=== PATIENT | male | born 1955 | race Caucasian/White ===

== ENCOUNTER → 2020-10-14 09:56 | Outpatient (CLI) | payer MEDICARE, SELFPAY ==
--- NOTE | ~2020-10-14 | US_ITS ---
EXAMINATION: US [facility] DATE: 10/14/2020 10:11 INDICATION: Encounter for screening for cardiovascular disorders. TECHNIQUE: Grayscale, color Doppler, and pulsed Doppler images of the aorta and common iliac arteries were obtained. COMPARISON: None. FINDINGS: The aorta is normal in caliber. The right common iliac artery is normal in caliber. The left common i liac artery is normal in caliber. IMPRESSION: 1. No abdominal aortic aneurysm. Reviewed, dictated and finalized at location A.
== END ==
PROVIDERS: PCP Family Medicine; Visit Provider Family Medicine
DX: Z13.6 Encounter for screening for cardiovascular disorders (principal)
CPT/HCPCS: 76706

== ENCOUNTER 2021-02-09 09:17 | Outpatient (CLI) | payer MEDICARE, SELFPAY ==
--- NOTE | 2021-02-09 09:43 | EST_ITS ---
Patient Info Name: Fabrice López Age: 66 years : 1955 Gender: Male Ht: 71 in Wt: 225 lbs BSA: 2.29 m2 HR: 69 bpm BP: 131 / 71 mmHg Heart Rhythm: Sinus Rhythm Exam Date: 02/09/2021 9:49 AM Exam Location: [facility] Patient Status: Outpatient Admit Date: 02/09/2021 Staff Ordering Physician: Sameer Freeman MD Link Trainer Mechanic: Tiffanie Gottlieb RDCS Attending Provider: Sameer Freeman MD Referring Physician: Lydia WOODWARD; Exercise Technologist: Maria Fernanda Noyola CT Exercise Physician: Magdiel Alaniz DO Exam Type: CA stress echo Study Info Indications I10 - Essential (primary) hypertension Treadmill exercise stress echocardiogram is performed. Summary 1. 1. Negative Vicente exercise stress test for ischemic ST changes by ECG criteria. 2. 2. Reduced functional capacity, achieving 7 METs of workload. 3. 3. Hypertensive response to exercise. 4. 4. Appropriate HR response to exercise. 5. 5. Appropriate HR recovery at 1 minute post exercise. 6. 6. Negative stress echocardiogram for ischemia by wall motion analysis. 7. 7. Patient informed of the above results. Stress Echo Findings Left Ventricle Appropriate increase in LV endocardial thickening with systole. Appropriate augmentation of contractility with systole. No wall motion abnormality. Left Ventricle Normal LV systolic function, no wall motion abnormality. Protocol: Vicente Rest HR: 67 bpm Peak HR: 146 bpm Rest Sys BP: 130 mmHg Peak Sys BP: 219 mmHg Max Pred HR: 153 bpm % Max Pred HR: 95 % Target HR: 130 bpm Max RPP: 31,974 bpm*mmHg Termination Reason: Reached target heart rate or workload Cardiac Symptoms: Shortness of breath Max ST Seg Deviation: 1.10 mm Total Time: 6 min : 1 sec Rest Hess BP: 70 mmHg Total METS: 7.1 Resting ECG Sinus rhythm. Stress ECG No ST changes. Arrhythmias None. Report Signatures Stress ECG Echo
== END 2021-02-09 09:18 | disposition home or self-care (01) ==
PROVIDERS: PCP Family Medicine; Visit Provider Family Medicine
DX: R07.9 Chest pain, unspecified (principal); I10 Essential (primary) hypertension
CPT/HCPCS: 93351

== ENCOUNTER 2022-06-27 08:35 | Outpatient (CLI) | payer MEDICARE, SELFPAY ==
[2022-06-27 20:16] LABS: Alanine Aminotransferase 34 U/L (6-50); Albumin Level 3.9 g/dL (3.5-5.1); Alkaline Phosphatase 66 U/L (38-126); Anion Gap 0 mmol/L (8-16); Aspartate Amino Transferase 32 U/L (17-59); Bilirubin,Total 1.2 mg/dL (0.2-1.3); Blood Urea Nitrogen 17 mg/dL (9-20); Calcium 9.3 mg/dL (8.4-10.2); Carbon Dioxide 34 mmol/L (22-30); Chloride 105 mmol/L (98-107); Cholesterol 148 mg/dL (0-200); Estimated Glomerular Filt Rate 60; Glucose 110 mg/dL (65-110); HDL Direct 28 mg/dL; Potassium 4.3 mmol/L (3.4-5.0); Sodium 139 mmol/L (137-145); Triglycerides 107 mg/dL (<150)
[2022-06-27 20:30] LABS: LDL Cholesterol Direct 94 mg/dL
[2022-06-27 21:38] LABS: Hemoglobin A1C 6.4 % (<5.7)
== END 2022-06-27 08:36 | disposition home or self-care (01) ==
LOC: ANHGOSHLAB 08:41
PROVIDERS: PCP Family Medicine; Visit Provider Family Medicine
DX: E10.319 Type 1 diabetes mellitus with unspecified diabetic retinopathy without macular edema (principal); E78.2 Mixed hyperlipidemia
CPT/HCPCS: 36415; 80053; 80061; 83036

== ENCOUNTER → 2022-07-03 16:08 | Outpatient (CLI) | payer MEDICARE, SELFPAY ==
--- NOTE | ~2022-07-03 | XR_ITS ---
Clinical Indication: Dyspnea PA and lateral views of the chest: Comparison: 08/10/2010 Findings: Focal airspace opacity left lung apex noted. Linear scarring left lung base noted. Cardiome diastinal silhouette is within normal limits. Bones and soft tissues are unremarkable. Impression: Focal airspace opacity left lung apex. This is somewhat more conspicuous as compared to 2011 exam. Th is is probably benign, but given increased conspicuity, consider CT scan to further evaluate. Reviewed, dictated and finalized at location M. Impression: Focal airspace opacity left lung apex. This is somewhat more conspicuous as com pared to 2010 exam. This is probably benign, but given increased conspicuity, c onsider CT scan to further evaluate.
== END ==
PROVIDERS: PCP Family Medicine; Visit Provider Family Medicine
DX: R06.00 Dyspnea, unspecified (principal); R06.89 Other abnormalities of breathing
CPT/HCPCS: 71046

== ENCOUNTER → 2022-07-07 10:15 | Outpatient (CLI) | payer MEDICARE, SELFPAY ==
--- NOTE | ~2022-07-07 | CT_ITS ---
CT Scan of the Chest without Contrast: Clinical Indication: Shortness of breath, abnormal chest x-ray Technique: Contiguous sections were acquired throughout the chest without intravenous contrast. Dose reduction technique was used on this scan by utilizing automated exposure control and iterative recon struction technique. The dose-length product (DLP) was 643.03 mGy-cm. Findings: There is no evidence of any significant mediastinal, hilar or axillary lymphadenopathy. Coronary aracely ry calcifications are present. There is no evidence of pleural or pericardial effusion. The lungs are clear. No pulmonary nodules or infiltrates are noted. Images through the upper abdomen reveal small gallstone. Impression: Clear lungs. Radiographic density was likely related to the anterior left first rib. Cholelithiasis. Reviewed, dictated and finalized at location . Impression: Clear lungs. Radiographic density was likely related to the anterior left first rib. Cholelithiasis.
== END ==
PROVIDERS: PCP Family Medicine; Visit Provider Family Medicine
DX: R06.02 Shortness of breath (principal); R91.8 Other nonspecific abnormal finding of lung field; K80.20 Calculus of gallbladder without cholecystitis without obstruction
CPT/HCPCS: 71250

== ENCOUNTER 2022-07-21 12:27 | Outpatient (CLI) | payer MEDICARE, SELFPAY ==
--- NOTE | 2022-07-24 10:48 | WPDPFTINT ---
PFT Procedure Performed PFT Procedure Performed Plethysmography (Lung Vol) Diffusing Cap (DLCO) Flow Vol Loop Spirometry w/o Bronchodil PFT Interpretation Lung volumes were measured with the body plethysmography method. Lung volumes are unremarkable. Spirometry showed normal expiratory flow rates and a normal FEV1 to FVC ratio 73%. No post bronchodilator study carried out. Lung diffusion capacity is within the normal range at 98% predicted. The flow-volume loop is unremarkable Impression: Spirometry, lung volumes, and lung diffusion capacity all within the normal range.
== END 2022-07-21 12:28 | disposition home or self-care (01) ==
PROVIDERS: PCP Family Medicine; Visit Provider Family Medicine
DX: R06.00 Dyspnea, unspecified (principal); R06.89 Other abnormalities of breathing
CPT/HCPCS: 94375; 94726; 94729

== ENCOUNTER 2022-10-06 14:27 | Outpatient (CLI) | payer MEDICARE, SELFPAY ==
[2022-10-06 18:29] LABS: Hemoglobin A1C 6.8 % (<5.7)
== END 2022-10-06 14:28 | disposition home or self-care (01) ==
LOC: ANHGOSHLAB 14:30
PROVIDERS: PCP Family Medicine; Visit Provider Family Medicine
DX: E10.319 Type 1 diabetes mellitus with unspecified diabetic retinopathy without macular edema (principal)
CPT/HCPCS: 36415; 83036

== ENCOUNTER 2023-01-31 08:49 | Outpatient (CLI) | payer MEDICARE, SELFPAY ==
[2023-01-31 14:36] LABS: Alanine Aminotransferase 30 U/L (6-50); Albumin Level 3.7 g/dL (3.5-5.1); Alkaline Phosphatase 81 U/L (38-126); Anion Gap 8 mmol/L (8-16); Aspartate Amino Transferase 31 U/L (17-59); Blood Urea Nitrogen 16 mg/dL (9-20); Calcium 9.8 mg/dL (8.4-10.2); Carbon Dioxide 26 mmol/L (22-30); Chloride 105 mmol/L (98-107); Cholesterol 148 mg/dL (0-200); Estimated Glomerular Filt Rate > 60; Glucose 114 mg/dL (65-110); HDL Direct 33 mg/dL; Sodium 139 mmol/L (137-145); Triglycerides 113 mg/dL (<150)
[2023-01-31 14:46] LABS: LDL Cholesterol Direct 90 mg/dL
[2023-01-31 15:05] LABS: Creatinine Urine 127.2 mg/dL
[2023-01-31 15:08] LABS: MALB Creatinine Ratio 52.2 mg/g (0-30); Microalbumin Urine Random 66.4 mg/L (0-16.7)
[2023-01-31 20:24] LABS: Hemoglobin A1C 6.7 % (<5.7)
== END 2023-01-31 08:50 | disposition home or self-care (01) ==
LOC: ANHGOSHLAB 08:51
PROVIDERS: PCP Family Medicine; Visit Provider Family Medicine
DX: E11.9 Type 2 diabetes mellitus without complications (principal)
CPT/HCPCS: 36415; 80053; 80061; 82043; 83036

== ENCOUNTER 2023-07-02 09:33 | Outpatient (CLI) | payer MEDICARE, SELFPAY ==
[2023-07-02 20:08] LABS: Hemoglobin A1C 6.8 % (<5.7)
== END 2023-07-02 09:34 | disposition home or self-care (01) ==
PROVIDERS: PCP Family Medicine; Visit Provider Family Medicine
DX: E10.319 Type 1 diabetes mellitus with unspecified diabetic retinopathy without macular edema (principal)
CPT/HCPCS: 36415; 83036

== ENCOUNTER 2023-10-12 10:26 | Outpatient (CLI) | payer MEDICARE, SELFPAY ==
[2023-10-12 14:21] LABS: Creatinine Urine 110.2 mg/dL
[2023-10-12 14:34] LABS: Alanine Aminotransferase 26 U/L (6-50); Albumin Level 3.9 g/dL (3.5-5.1); Alkaline Phosphatase 79 U/L (38-126); Anion Gap 8 mmol/L (4-12); Aspartate Amino Transferase 51 U/L (17-59); Bilirubin,Total 1.8 mg/dL (0.2-1.3); Blood Urea Nitrogen 16 mg/dL (9-20); Calcium 9.9 mg/dL (8.4-10.2); Carbon Dioxide 27 mmol/L (22-30); Chloride 102 mmol/L (98-107); Cholesterol 143 mg/dL (0-200); Estimated Glomerular Filt Rate 60; Glucose 147 mg/dL (65-110); HDL Direct 34 mg/dL; Potassium 4.1 mmol/L (3.4-5.0); Sodium 137 mmol/L (137-145); Triglycerides 119 mg/dL (<150)
[2023-10-12 14:45] LABS: LDL Cholesterol Direct 84 mg/dL
[2023-10-12 15:22] LABS: MALB Creatinine Ratio < 5.4 mg/g (0-30); Microalbumin Urine Random < 6.0 mg/L (0-16.7)
[2023-10-12 19:41] LABS: Hemoglobin A1C 6.9 % (<5.7)
== END 2023-10-12 10:27 | disposition home or self-care (01) ==
LOC: ANHGOSHLAB 10:27
PROVIDERS: PCP Family Medicine; Visit Provider Family Medicine
DX: E10.21 Type 1 diabetes mellitus with diabetic nephropathy (principal)
CPT/HCPCS: 36415; 80053; 80061; 82043; 83036

== ENCOUNTER 2024-02-11 11:26 | Outpatient (CLI) | payer MEDICARE, SELFPAY | END 2024-02-11 11:27 | disposition home or self-care (01) | LOC: ANHGOSHLAB 11:28 | PROVIDERS: PCP Family Medicine; Visit Provider Family Medicine | DX: E10.21 Type 1 diabetes mellitus with diabetic nephropathy (principal) | CPT/HCPCS: 36415; 83036 ==

== ENCOUNTER 2024-05-22 08:29 | Outpatient (CLI) | payer MEDICARE, SELFPAY ==
--- OUTSIDE RECORDS SUMMARY | 2024-05-22 08:35 | XMS_ITS | Clinical Summary ---
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
--- OUTSIDE RECORDS SUMMARY | 2024-05-22 08:35 | XMS_ITS | CONTINUITY OF CARE DOCUMENT ---
Author Name libia reza Address Unknown Organization [facility] Address [address] [place] [address] Phone [phone] Care Team Providers Care Photoengraving Apprentice Name Role Phone libia reza Unavailable Unavailable INSURANCE PROVIDERS Payer name Policy type / Coverage type [place] red green party ID [facility] Other [id number]
--- OUTSIDE RECORDS SUMMARY | 2024-05-22 08:35 | XMS_ITS | Encounter Summary ---
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
--- OUTSIDE RECORDS SUMMARY | 2024-05-22 08:35 | XMS_ITS | Encounter Summary ---
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
--- OUTSIDE RECORDS SUMMARY | 2024-05-22 08:35 | XMS_ITS | Encounter Summary ---
Author Organization 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
--- OUTSIDE RECORDS SUMMARY | 2024-05-22 08:35 | XMS_ITS | Encounter Summary ---
Author Organization [facility] Address 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
--- OUTSIDE RECORDS SUMMARY | 2024-05-22 08:35 | XMS_ITS | Continuity of Care Document ---
Author Organization [facility] Address [address] [place] [address] Phone Care Team Providers Care Setter Out Name Role Phone Vera Urban Unavailable Unavailable Advance Directives Directive Yes / No Effective Date File Name No Information Encounters Encounter Description Practice Location Reason(s) For Visit Diagnoses Date Provider Providers Copied on Encounter [facility], [address], [place], [place], [address], [place] tel:[phone] [facility] No Information Shlomo-0 [phone] Rajni Gamez. [address] , [address], [place], [address], [place]. tel:[phone] Family History Family Member Type Diagnosis Age At Onset No Information Payers Payer name Insurance type Covered democrat ID Authoriza tion(s) No Information Social History [...]
[2024-05-22 14:38] LABS: Alanine Aminotransferase 27 U/L (6-50); Alkaline Phosphatase 75 U/L (38-126); Anion Gap 6 mmol/L (4-12); Aspartate Amino Transferase 38 U/L (17-59); Bilirubin,Total 1.3 mg/dL (0.2-1.3); Blood Urea Nitrogen 15 mg/dL (9-20); Carbon Dioxide 30 mmol/L (22-30); Chloride 104 mmol/L (98-107); Cholesterol 138 mg/dL (0-200); Estimated Glomerular Filt Rate > 60; Glucose 93 mg/dL (65-110); HDL Direct 34 mg/dL; Potassium 4.3 mmol/L (3.4-5.0); Sodium 140 mmol/L (137-145); Triglycerides 91 mg/dL (<150)
[2024-05-22 14:49] LABS: LDL Cholesterol Direct 79 mg/dL
[2024-05-22 15:11] LABS: Prostate Specific Antigen 1.8 ng/mL (< OR = 4.0)
[2024-05-22 16:01] LABS: Hemoglobin A1C 7.1 % (<5.7)
== END 2024-05-22 08:30 | disposition home or self-care (01) ==
LOC: ANHGOSHLAB 08:30
PROVIDERS: PCP Family Medicine; Visit Provider Family Medicine
DX: E78.2 Mixed hyperlipidemia (principal); E10.319 Type 1 diabetes mellitus with unspecified diabetic retinopathy without macular edema; Z12.5 Encounter for screening for malignant neoplasm of prostate
CPT/HCPCS: 36415; 80053; 80061; 83036; 84153; G0103

== ENCOUNTER 2024-09-01 10:37 | Outpatient (CLI) | payer MEDICARE, SELFPAY ==
[2024-09-01 12:44] LABS: Alanine Aminotransferase 27 U/L (6-50); Alkaline Phosphatase 66 U/L (38-126); Anion Gap 6 mmol/L (4-12); Aspartate Amino Transferase 39 U/L (17-59); Bilirubin,Total 1.7 mg/dL (0.2-1.3); Blood Urea Nitrogen 14 mg/dL (9-20); Calcium 10.2 mg/dL (8.4-10.2); Carbon Dioxide 28 mmol/L (22-30); Chloride 105 mmol/L (98-107); Estimated Glomerular Filt Rate 59; Glucose 108 mg/dL (65-110); Potassium 4.1 mmol/L (3.4-5.0); Sodium 139 mmol/L (137-145); Total Protein 6.5 g/dL (6.3-8.2)
[2024-09-01 15:35] LABS: Hemoglobin A1C. 6.9 % (<5.7)
== END 2024-09-01 10:38 | disposition home or self-care (01) ==
LOC: ANHGOSHLAB 10:37
PROVIDERS: PCP Family Medicine; Visit Provider Family Medicine
DX: E10.319 Type 1 diabetes mellitus with unspecified diabetic retinopathy without macular edema (principal)
CPT/HCPCS: 36415; 80053; 83036

== ENCOUNTER 2024-09-16 00:32 | Day surgery (SDC) | payer MEDICARE, SELFPAY ==
[2024-08-29 10:07] VITALS: BMI 29.7
--- OUTSIDE RECORDS SUMMARY | 2024-09-16 00:40 | XMS_ITS | Encounter Summary ---
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
--- OUTSIDE RECORDS SUMMARY | 2024-09-16 00:40 | XMS_ITS | Encounter Summary ---
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
--- OUTSIDE RECORDS SUMMARY | 2024-09-16 00:40 | XMS_ITS | Encounter Summary ---
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
--- OUTSIDE RECORDS SUMMARY | 2024-09-16 00:40 | XMS_ITS | Continuity of Care Document ---
Author Organization [facility] Address [address] [place] [address] Phone Care Team Providers Care Service Order Expediter Name Role Phone Vera Urban Unavailable Unavailable Advance Directives Directive Yes / No Effective Date File Name No Information Encounters Encounter Description Practice Location Reason(s) For Visit Diagnoses Date Provider Providers Copied on Encounter [facility], [address], [place], [place], [address], [place] tel:[phone] [facility] No Information Shlomo-0 [phone] Rajni Gamez. [address] , [address], [place], [address], [place]. tel:[phone] Family History Family Member Type Diagnosis Age At Onset No Information Payers Payer name Insurance type Covered libertarian ID Authoriza tion(s) No Information Social History [...]
--- OUTSIDE RECORDS SUMMARY | 2024-09-16 00:40 | XMS_ITS | Clinical Summary ---
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
--- OUTSIDE RECORDS SUMMARY | 2024-09-16 00:40 | XMS_ITS | Encounter Summary ---
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
[2024-09-16 10:58] VITALS: BP 127/92; PULSE 80; RESP 18; TEMP 36.5; O2SAT 97; BMI 29.7
[2024-09-16] MEDS: LACTATED RINGERS 1,000 ML 150 ML IV CONT (11:25)
--- NOTE | 2024-09-16 11:41 | P.PNAN_ITS ---
Anes - Initial Pre Proc Eval Procedure: Operation Date: 09/16/24 12:30 Proposed Procedures p Screening Colonoscopy - Asher Perez MD Date/Time: 09/16/24 11:41 Surgeon: Asher Perez MD Pre Op Diagnosis: neoplasm screening Patient Data Age: 69 Gender: M Height: 1.83 m Weight: 99.6 kg Last Vital Signs Temp 97.7 F 09/16/24 10:58 Pulse 80 09/16/24 10:58 Resp 18 09/16/24 10:58 BP 127/92 H 09/16/24 10:58 Pulse Ox 97 09/16/24 10:58 O2 Del Method Room Air 09/16/24 10:58 Allergies Allergy/AdvReac Type Severity Reaction Status Date / Time No Known Allergies Allergy Verified 09/16/24 11:11 Home Medications ?Medication ?Instructions ?Recorded ?Confirmed ?Type aspirin 81 mg tablet,delayed 81 mg PO DAILY 04/23/19 09/16/24 History release blood sugar diagnostic (Contour #100 ea 04/23/19 09/16/24 Rx Next Test Strips) fluticasone propionate 50 1 - 2 spray intranasal DAILY #47.4 04/23/19 09/16/24 Rx mcg/actuation nasal mL spray,suspension flash glucose sensor (FreeStyle #13 ea 12/08/22 09/16/24 Rx Karla 14 Day Sensor kit) insulin lispro 100 unit/mL 1 sliding scale dose subcut 07/09/23 09/16/24 Rx subcutaneous solution (Humalog USEASDIRECTD #300 mL U-100 Insulin) tamsulosin 0.4 mg capsule (Flomax) 0.4 mg PO DAILY #90 caps 12/13/23 09/16/24 Rx atorvastatin 40 mg tablet See Rx Instructions .Route 06/23/24 09/16/24 Rx .COMPLEX #90 tabs lisinopril 40 mg tablet 40 mg PO DAILY #90 tabs 07/14/24 09/16/24 Rx Patient hx anesthesia problems: none Family hx anesthesia problems: none Results Review: All pre-operative results and documents have been reviewed as part of the pre- operative evaluation. 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 Mixed hyperlipidemia Diabetic polyneuropathy Essential hypertension Surgical History Surgical History History of carpal tunnel release Family History Family History Father Diabetes mellitus Family history of cardiovascular disease Hypertension Family history of elevated blood lipids Carcinoma of colon Family history of coronary artery disease Sibling Diabetes mellitus Family history of cardiovascular disease Mother Cerebrovascular accident Grandparent Hypertension Family history of cardiovascular disease Social History Social History Smoking status: Former smoker Smoking end date: 03/05/71 Alcohol intake: never Substance use type: does not use Lack of Transportation: No Lack of Food: Never True Current Housing: I Have Housing Concerned About Future Housing: No Difficulty Paying Gas/Electric Bills: No Difficulty Paying for Meds: No Currently Unemployed: No Education: Decline to Answer Difficulty w/ Childcare or Family Care: No Living arrangements: with family Spiritual care concerns: No Anes - Eval Final PreProcedure Day of Procedure 09/16/24 11:41 Patient weight: overweight Lungs: normal air movement Airway: Mallampati scale class II Neurological: alert and oriented Last oral intake: >/= 8 hours ASA classification: III Emergent: no Anesthetic plan: proceed Anesthesia type and monitoring: general GIVS and standard monitoring Results Review: All pre-operative results and documents have been reviewed as part of the pre-operative evaluation. HTN, hyperlipidemia, DM 1 on insulin pump, fsbs 156, EMMA on CPAP. Informed Consent: The patient's anesthetic plan and its attendant risks and benefits were discussed with the patient/family/POA. Questions were solicited and answers provided to the satisfaction of the patient/family/POA.
--- NOTE | 2024-09-16 11:42 | SUR.PREOP ---
Pt's blood sugar is 208 per his Freestyle Karla. Pt refused finger stick.
--- NOTE | 2024-09-16 12:39 | P.HP_ITS ---
H&P: HPI History of Present Illness Date/Time: 09/16/24 12:39 Chief Complaint: Family history of colon polyps Narrative: This patient has family history of colorectal polyps. Review of Systems Review of Systems: All systems reviewed & are unremarkable except as noted in HPI and below PMFSH Past Medical History Medical History Colon cancer screening care home (current) use of insulin Actinic keratoses Seborrheic keratoses Obesity (BMI 30.0-34.9) Insulin dependent diabetes mellitus Monteggia's fracture (~1982) Wears glasses Carpal tunnel syndrome Trigger finger (~2008) Effects of high altitude (~2008) EMMA (obstructive sleep apnea) Vitamin D deficiency Testicular hypofunction Diabetic retinopathy associated with type 1 diabetes mellitus Proteinuria due to type 1 diabetes mellitus Mixed hyperlipidemia Diabetic polyneuropathy Essential hypertension Surgical History Surgical History History of carpal tunnel release Family History Family History Father Diabetes mellitus Family history of cardiovascular disease Hypertension Family history of elevated blood lipids Carcinoma of colon Family history of coronary artery disease Sibling Diabetes mellitus Family history of cardiovascular disease Mother Cerebrovascular accident Grandparent Hypertension Family history of cardiovascular disease Social History Social History Smoking status: Former smoker Smoking end date: 03/05/71 Alcohol intake: never Substance use type: does not use Lack of Transportation: No Lack of Food: Never True Current Housing: I Have Housing Concerned About Future Housing: No Difficulty Paying Gas/Electric Bills: No Difficulty Paying for Meds: No Currently Unemployed: No Education: Decline to Answer Difficulty w/ Childcare or Family Care: No Living arrangements: with family Spiritual care concerns: No Meds Home Medications and Allergies Home Medications ?Medication ?Instructions ?Recorded ?Confirmed ?Type aspirin 81 mg tablet,delayed 81 mg PO DAILY 04/23/19 09/16/24 History release blood sugar diagnostic (Contour #100 ea 04/23/19 09/16/24 Rx Next Test Strips) fluticasone propionate 50 1 - 2 spray intranasal DAILY #47.4 04/23/19 09/16/24 Rx mcg/actuation nasal mL spray,suspension flash glucose sensor (FreeStyle #13 ea 12/08/22 09/16/24 Rx Karla 14 Day Sensor kit) insulin lispro 100 unit/mL 1 sliding scale dose subcut 07/09/23 09/16/24 Rx subcutaneous solution (Humalog USEASDIRECTD #300 mL U-100 Insulin) tamsulosin 0.4 mg capsule (Flomax) 0.4 mg PO DAILY #90 caps 12/13/23 09/16/24 Rx atorvastatin 40 mg tablet See Rx Instructions .Route 06/23/24 09/16/24 Rx .COMPLEX #90 tabs lisinopril 40 mg tablet 40 mg PO DAILY #90 tabs 07/14/24 09/16/24 Rx Allergies Allergy/AdvReac Type Severity Reaction Status Date / Time No Known Allergies Allergy Verified 09/16/24 11:11 Vital Signs Vital Signs - 24 hr 09/16/24 10:58 Temperature 97.7 F Pulse Rate 80 Respiratory Rate 18 Blood Pressure 127/92 H Pulse Oximetry 97 Oxygen Delivery Room Air Exam Const: General: cooperative and healthy appearing Resp: Effort & Inspection: normal respiratory effort and able to speak in complete sentences Auscultation: clear to auscultation bilaterally Cardio: Rate: regular rate Rhythm: regular rhythm GI: Inspection: normal to inspection GI Palp: No No hepatosplenomegaly present Auscultation: normal bowel sounds Rectal Exam: deferred Skin: General skin exam: normal color Psych: Appearance: grossly normal Mental Status: mental status grossly normal Assessment and Plan Assessment and plan (1) Colon cancer screening: Code(s): Z12.11 - Encounter for screening for malignant neoplasm of colon Status: Acute Assessment and Plan: The patient is deemed a good candidate for the procedure. Consent signed. Will proceed.
--- NOTE | 2024-09-16 13:10 | S_PTH ---
PATIENT: Fabrice López II LOC: [facility] U#:[id number] AGE/SX: 69/M ROOM: RE09/16/[address]: Asher Perez MD : [id number] BED: DIS: 09/16/2024 SPEC #: [id number] RECD: 09/16/24 14:21 STATUS: CHRIS REQ #: [id number] STACEY: 09/16/24 13:[address]: Asher Perez DEPT: [facility] Surgical RECD BY: Mayuri Banuelos ENTERED: 09/16/24 14:23 SP TYPE: Surgical OTHR DR: Bambi Núñez, YANET Tissues: A - Colon Polypectomy B - Colon Polypectomy C - Colon Polypectomy D - Colon Polypectomy Procedures: Hematoxylin and Eosin Stain Gross and Microscopic Level 4
[2024-09-16 13:14] VITALS: BP 80/49; PULSE 64; RESP 21; O2SAT 94
--- NOTE | 2024-09-16 13:17 | SUR.PHASEII ---
blood glucose 102 per patients monitor
[2024-09-16 13:24] VITALS: BP 84/48; PULSE 60; RESP 16; O2SAT 97
[2024-09-16 13:34] VITALS: BP 100/67; PULSE 56; RESP 18; O2SAT 97
== END 2024-09-16 13:47 | disposition home or self-care (01) ==
PROVIDERS: PCP Nurse Practitioner Family; Referring Provider Family Medicine; Visit Provider Internal Medicine Gastroenterology
PROC: 0DJD8ZZ Inspection of Lower Intestinal Tract, Via Natural or Artificial Opening Endoscopic (ICD-10-PCS; CPT 45378; principal; 2024-09-16 12:30)
DX: Z12.11 Encounter for screening for malignant neoplasm of colon (principal); D12.5 Benign neoplasm of sigmoid colon; D12.4 Benign neoplasm of descending colon; K63.5 Polyp of colon; K64.8 Other hemorrhoids; I10 Essential (primary) hypertension; G47.33 Obstructive sleep apnea (adult) (pediatric); E55.9 Vitamin D deficiency, unspecified; E29.1 Testicular hypofunction; E11.42 Type 2 diabetes mellitus with diabetic polyneuropathy; L57.0 Actinic keratosis; L82.1 Other seborrheic keratosis; Z79.4 Long term (current) use of insulin; Z79.82 Long term (current) use of aspirin; Z99.89 Dependence on other enabling machines and devices; Z98.890 Other specified postprocedural states; Z96.41 Presence of insulin pump (external) (internal); Z87.891 Personal history of nicotine dependence; Z83.719 Family history of colon polyps, unspecified; Z80.0 Family history of malignant neoplasm of digestive organs; Z82.49 Family history of ischemic heart disease and other diseases of the circulatory system
CPT/HCPCS: 45385; 88305; J2003; J2704; J7120

== ENCOUNTER 2024-12-08 09:52 | Outpatient (CLI) | payer MEDICARE, SELFPAY ==
--- OUTSIDE RECORDS SUMMARY | 2005-08-08 10:45 | XMS_ITS | Continuity of Care Document ---
Author Organization [facility] Address [address] [place] [address] Phone Care Team Providers Care Block Piler Name Role Phone Vera Urban Unavailable Unavailable Advance Directives Directive Yes / No Effective Date File Name No Information Encounters Encounter Description Practice Location Reason(s) For Visit Diagnoses Date Provider Providers Copied on Encounter [facility], [address], [place], [place], [id number], [place] tel:[phone] [facility] No Information Shlomo-0 [phone] Rajni Gamez. [address] , [address], [place], [address], [place]. tel:[phone] Family History Family Member Type Diagnosis Age At Onset No Information Payers Payer name Insurance type Covered alliance party ID Authoriza tion(s) No Information Social History Type Description Quantity Date Captured Comments Sex Male Smoking Status No Information Chief Complaint And Reason For Visit No Information Reason For Referral Reason For Referral No Information History Of Present Illness Encounter Date Complaint History Of Prese nt Illness No Information Functional Status Date Functional Assessmen t No Information Instructions Date Instruction Additional Infor mation No Information Assessments Type Assessment Date No Information Patient Care Teams Name Effective Dates (start - stop) Status Members No Information
--- OUTSIDE RECORDS SUMMARY | 2024-12-08 10:57 | XMS_ITS | Clinical Summary ---
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
--- OUTSIDE RECORDS SUMMARY | 2024-12-08 10:57 | XMS_ITS | Encounter Summary ---
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
--- OUTSIDE RECORDS SUMMARY | 2024-12-08 10:57 | XMS_ITS | Encounter Summary ---
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
--- OUTSIDE RECORDS SUMMARY | 2024-12-08 10:57 | XMS_ITS | Encounter Summary ---
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
--- OUTSIDE RECORDS SUMMARY | 2024-12-08 10:57 | XMS_ITS | Encounter Summary ---
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
[2024-12-08 13:00] LABS: Anion Gap 4 mmol/L (4-12); Blood Urea Nitrogen 14 mg/dL (9-20); Calcium 9.8 mg/dL (8.4-10.2); Carbon Dioxide 27 mmol/L (22-30); Chloride 106 mmol/L (98-107); Estimated Glomerular Filt Rate > 60; Glucose 210 mg/dL (65-110); Potassium 4.3 mmol/L (3.4-5.0); Sodium 137 mmol/L (137-145)
[2024-12-08 13:23] LABS: Hemoglobin A1C 7.0 % (<5.7)
== END 2024-12-08 09:53 | disposition home or self-care (01) ==
LOC: ANHGOSHLAB 09:54
PROVIDERS: PCP Family Medicine; Visit Provider Nurse Practitioner Family
DX: E10.319 Type 1 diabetes mellitus with unspecified diabetic retinopathy without macular edema (principal); I10 Essential (primary) hypertension
CPT/HCPCS: 36415; 80048; 83036

== ENCOUNTER 2024-12-10 10:38 | Outpatient (CLI) | payer MEDICARE, SELFPAY ==
[2024-12-10 19:59] LABS: MALB Creatinine Ratio 7.0 mg/g (0-30)
== END 2024-12-10 10:39 | disposition home or self-care (01) ==
LOC: ANHGOSHLAB 10:39
PROVIDERS: PCP Family Medicine; Visit Provider Nurse Practitioner Family
DX: E10.319 Type 1 diabetes mellitus with unspecified diabetic retinopathy without macular edema (principal); I10 Essential (primary) hypertension
CPT/HCPCS: 82043

== ENCOUNTER 2025-02-27 13:14 | Emergency (ER) | payer MEDICARE, SELFPAY ==
[2025-02-27 13:27] VITALS: BP 141/64; PULSE 76; RESP 16; TEMP 36.3; O2SAT 99
--- NOTE | 2025-02-27 14:19 | ED_ITS ---
HPI - URI/Sore Throat General Chief Complaint: Upper Respiratory Infection Stated Complaint: ?sinus Time Seen by Provider: 02/27/25 14:19 Source: patient, RN notes reviewed and old records reviewed Mode of arrival: ambulatory Limitations: no limitations History of Present Illness HPI Narrative: 70-year-old male presents to the [facility] with sinus congestion. States that it when he blows his nose he has some ear pain. Symptoms started Sunday or Sunday, 3-4 days ago. States that he does take Sudafed and make symptoms better. Related Data Home Medications ?Medication ?Instructions ?Recorded ?Confirmed ?Last Taken ?Type aspirin 81 mg tablet,delayed 81 mg PO DAILY 04/23/19 1 04/12/24 09/15/24 History release Allergies Allergy/AdvReac Type Severity Reaction Status Date / Time No Known Allergies Allergy Verified 12/10/24 09:26 Review of Systems Review of Systems: All systems reviewed & are unremarkable except as noted in HPI and below Constitutional: Constitutional: Reports no additional constitutional complaints ENT: Reports as per HPI and Reports nasal congestion Cardiovascular: Cardiovascular: Reports no additional cardiovascular complaints, Denies chest pain and Denies dyspnea Respiratory: Respiratory: Reports no additional respiratory complaints, Denies chest congestion, Denies cough and Denies dyspnea Musculoskeletal: Musculoskeletal: Reports no additional musculoskeletal complaints Integumentary/Breasts: Skin/Breast: Reports system reviewed and no additional complaints, except as docu PMFSH Past Medical History Medical History 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 Actinic keratoses Seborrheic keratoses Obesity (BMI 30.0-34.9) Insulin dependent diabetes mellitus Monteggia's fracture (~1982) Wears glasses Carpal tunnel syndrome Trigger finger (~2008) Effects of high altitude (~2008) EMMA (obstructive sleep apnea) Vitamin D deficiency Testicular hypofunction Diabetic retinopathy associated with type 1 diabetes mellitus Proteinuria due to type 1 diabetes mellitus Mixed hyperlipidemia Diabetic polyneuropathy Essential hypertension Surgical History Surgical History History of carpal tunnel release Family History Family History Father Diabetes mellitus Family history of cardiovascular disease Hypertension Family history of elevated blood lipids Carcinoma of colon Family history of coronary artery disease Sibling Diabetes mellitus Family history of cardiovascular disease Mother Cerebrovascular accident Grandparent Hypertension Family history of cardiovascular disease Social History Social History Smoking status: Former smoker Smoking end date: 03/05/71 Alcohol intake: never Substance use type: does not use Lack of Transportation: No Lack of Food: Never True Current Housing: I Have Housing Concerned About Future Housing: No Difficulty Paying Gas/Electric Bills: No Difficulty Paying for Meds: No Currently Unemployed: No Education: Decline to Answer Difficulty w/ Childcare or Family Care: No Living arrangements: with family Spiritual care concerns: No Comments At the time of my signature, I reviewed and agree with the nursing past medical, surgical, social, and family history. There is no relevant family history pertinent to the patient complaint. Exam Const: General: cooperative, healthy appearing, comfortable, no acute distress, well developed, alert and well nourished Nutritional Appearance: well nourished Orientation/consciousness: patient oriented x3 Limitations: no limitations HENMT: Head: normal to inspection Ears: hearing grossly normal bilaterally, external ears normal, TM's normal bilaterally, EAC's normal, mastoids normal and no periauricular adenopathy Mouth: Yes Normal oral and palatal mucosa present, Yes lip normal, Yes tongue normal and Yes moist mucous membranes Throat: posterior oropharynx normal, uvula midline and no uvular edema Eyes: General: appearance normal, both eyes and all related structures Alignment and Position: alignment normal Neck: Neck: normal visual inspection, full ROM, no lymphadenopathy and no meningeal signs Chest: Chest palpation & inspection: normal inspection of the chest Resp: Effort & Inspection: normal respiratory effort and able to speak in complete sentences Auscultation: clear to auscultation bilaterally, no crackles, no rales, no rhonchi and no wheezes Cardio: Rate: regular rate Skin: General skin exam: normal color and no rashes or lesions noted Neuro: General: patient oriented x3, gait normal, moves all extremities and no meningeal signs Cognition (Neuro): normal cognition Speech: normal speech Gait exam (Neuro): Normal gait present Extrem: General: normal to inspection, full ROM, capillary refill normal and normal gait Psych: Appearance: grossly normal and well kempt Mental Status: mental status grossly normal Speech and movement: Normal speech and movement present and Clear speech present Affect: normal affect Attitude: cooperative Course Course Level of Care: Express Care Visit Vital Signs Vital signs: Vital Signs Temperature 97.4 F L 02/27/25 13:27 Pulse Rate 76 02/27/25 13:27 Respiratory Rate 16 02/27/25 13:27 Blood Pressure 141/64 H 02/27/25 13:27 Pulse Oximetry 99 02/27/25 13:27 Temperature 97.4 F L 02/27/25 13:27 Pulse Rate 76 02/27/25 13:27 Respiratory Rate 16 02/27/25 13:27 Blood Pressure 141/64 H 02/27/25 13:27 Pulse Oximetry 99 02/27/25 13:27 reviewed MDM MDM Narrative Medical decision making narrative: Patient sitting in exam room. Patient is nontoxic, vitals stable. Patient presents with 3-4 day history of sinus congestion. Offered flu and COVID testing which he politely declined. Discussed [id number] products, due to high blood pressure discussed not taking Sudafed, discussed alternatives. Encourage patient to use his Flonase Patient appropriate outpatient treatment with close follow-up Discharge instructions reviewed with patient, as well as provided in writing per nursing staff. The instructions also include specific and strict return/GO TO THE ER as well as f/u information. All questions have been answered, and the patient deny any further questions with discharge and discharge plan. Some parts of this dictation were generated by voice recognition software and may contain typographical and/or grammatical inaccuracies. Differential Diagnosis Differential Diagnosis: Differential diagnostic considerations for upper respiratory infection include upper respiratory infection, croup, otitis media, sinusitis, viral infection, bronchitis, influenza, pharyngitis, strep, uvulitis.? Discharge Plan Discharge Clinical Impression: Upper respiratory infection, Sinus congestion Patient Disposition: Home Condition: Stable Instructions: Antibiotic Form, Upper Respiratory Infection (DC) Additional Instructions: Your symptoms are likely due to a viral illness, which is not treated with antibiotics. Typically viral infections last 7-10 days, can linger for couple of weeks. It is very important to treat your symptoms. Drink plenty of water, Gatorade, Pedialyte, ice pops or Jell-O. -Alternate Tylenol and Motrin per package directions for fever or pain. You can alternate every 4 hours -Antihistamine medication such as Zyrtec/Claritin during the day can help improve symptoms. -doing daily nasal irrigations can help relieve pressure your sinuses. Things like a Neti pot -Use Flonase twice a day for 5 days then daily to help reduce the inflammation and dry up your sinuses. -You can also use Mucinex. Be sure to drink plenty of water with this medication at least 8 ounces with every dose and it is important to drink 8 to 10 glasses of water per day. Water is a natural decongestant -Eat and drink things that are easy to swallow, like tea or soup, or popsicles. -Oral rinses such as: Salt water gargles and/or may use topical anesthetic (eg. Chloraseptic spray) or lozenges to relieve dryness or throat pain). -Frequent hand washing or hand tray casting machine operator is one of the best ways to prevent spread of infection. -Using a vaporizer or humidifier at night will also help thin secretions and help with coughing up phlegm. -Follow up with primary care provider in 7-10 days if condition is not improving - For new or worsening symptoms go directly to the nearest ER Patient Language: [place] Prescriptions: No Action aspirin 81 mg tablet,delayed release (DR/EC) 81 mg PO DAILY fluticasone propionate 50 mcg/actuation spray,suspension 1 - 2 spray NASAL DAILY Qty: 47.4 3RF Patient Comments: PRN (DME) Contour Next Test Strips Strip See Rx Instructions .ROUTE .MEDSUPPLY Qty: 100 5RF Rx Instructions: Use to test BS every 4-6 hours as needed (DME) FreeStyle Karla 14 Day Sensor Kit See Rx Instructions .ROUTE .MEDSUPPLY Qty: 13 3RF Rx Instructions: As directed Freestyle Karla 3 tamsulosin [Flomax] 0.4 mg capsule 0.4 mg PO DAILY Qty: 90 1RF insulin lispro [Humalog U-100 Insulin] 100 unit/mL solution 1 sliding scale dose SUB-Q USEASDIRECTD Qty: 300 3RF Rx Instructions: for use in insulin pump; max 120 units atorvastatin 40 mg tablet See Rx Instructions .ROUTE .COMPLEX Qty: 90 1RF Dose Instruction: TAKE 1 TABLET BY MOUTH DAILY Rx Instructions: TAKE 1 TABLET BY MOUTH DAILY lisinopril 40 mg tablet 40 mg PO DAILY Qty: 90 1RF Follow-up/Referrals: Sameer Freeman MD [Primary Care Provider, [facility]] - 2 Weeks Clinical Impression: Upper respiratory infection; Sinus congestion Time of Disposition: 14:29
== END 2025-02-27 14:33 | disposition home or self-care (01) ==
PROVIDERS: Emergency Provider Nurse Practitioner; PCP Family Medicine
DX: J06.9 Acute upper respiratory infection, unspecified (principal); R09.81 Nasal congestion; I10 Essential (primary) hypertension; E10.42 Type 1 diabetes mellitus with diabetic polyneuropathy; E10.319 Type 1 diabetes mellitus with unspecified diabetic retinopathy without macular edema; Z79.4 Long term (current) use of insulin; E78.2 Mixed hyperlipidemia; E66.9 Obesity, unspecified; Z68.30 Body mass index [BMI] 30.0-30.9, adult; Z87.891 Personal history of nicotine dependence
CPT/HCPCS: 99211; G0463